=== PATIENT | female | born 1940 | race Caucasian/White ===

== ENCOUNTER → 2016-10-02 | Outpatient (CLI) | payer MEDICARE, BC ==
[~2016-10-02] MED LIST: DENOSUMAB 60 MG/ML 1 ML SYRINGE SQ NR
[2016-10-02 14:26] VITALS: BP 137/79; PULSE 79; RESP 17; TEMP 98.2
== END ==
LOC: PROCWHC3 13:45
PROVIDERS: ATTEND Family Medicine
DX: M81.0 Age-related osteoporosis without current pathological fracture (principal)
CPT/HCPCS: 96372; J0897

== ENCOUNTER → 2017-09-19 | Outpatient (CLI) | payer MEDICARE, BC ==
[~2017-09-19] MED LIST changes: -DENOSUMAB 60 MG/ML 1 ML SYRINGE SQ NR; +DENOSUMAB 60 MG/ML 1 ML SYRINGE SQ ONE
[2017-09-19 11:07] VITALS: BP 126/74; PULSE 80; RESP 15; TEMP 98.4
== END | disposition home or self-care (01) ==
LOC: PROCWHC3 10:57
PROVIDERS: ATTEND Family Medicine
DX: M81.0 Age-related osteoporosis without current pathological fracture (principal)
CPT/HCPCS: 96372; J0897

== ENCOUNTER → 2017-10-16 | Outpatient (CLI) | payer MEDICARE, BC ==
--- NOTE | 2017-10-22 10:03 | MM ---
Reason for exam: screening (asymptomatic). Last mammogram was performed 8 years and 2 months ago. History: Patient is postmenopausal. Physical Findings: A clinical breast exam by your physician is recommended on an annual basis and results should be correlated with mammographic findings. MG 3D Screening Mammo W/Cad Bilateral CC and MLO view(s) were taken. Prior study comparison: January 16, 2016, mammogram, performed at [facility]. December 22, 2014, mammogram, performed at [facility]. There are scattered fibroglandular densities. Finding: There are developing coarse heterogeneous, grouped/clustered calcifications in the upper outer quadrant, middle position of the left breast 6cm from the nipple. New finding since January 16, 2016. ASSESSMENT: Incomplete: need additional imaging evaluation, BI-RAD 0 RECOMMENDATION: Special view mammogram of the left breast. [facility] will attempt to contact patient to return for supplemental views.
== END | disposition home or self-care (01) ==
LOC: RADMAMWWP 10:05
PROVIDERS: ATTEND Family Medicine
DX: Z12.31 Encounter for screening mammogram for malignant neoplasm of breast (principal)
CPT/HCPCS: 77063; 77067

== ENCOUNTER → 2017-10-20 | Outpatient (CLI) | payer MEDICARE, BC ==
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
== END ==
LOC: RADBDWWP 09:07
PROVIDERS: ATTEND Family Medicine
DX: M85.851 Other specified disorders of bone density and structure, right thigh (principal); M85.852 Other specified disorders of bone density and structure, left thigh; M85.88 Other specified disorders of bone density and structure, other site; Z78.0 Asymptomatic menopausal state
CPT/HCPCS: 77080

== ENCOUNTER → 2017-10-31 | Outpatient (CLI) | payer MEDICARE, BC ==
--- NOTE | 2017-11-01 10:38 | MM ---
Reason for exam: additional evaluation requested from abnormal screening. Last mammogram was performed less than 1 month ago. History: Patient is postmenopausal. Physical Findings: Nurse did not find any significant physical abnormalities on exam. MG 3D Work Up W/Cad LT CC with magnification, LM with magnification, and ML view(s) were taken of the left breast. Prior study comparison: October 16, 2017, bilateral MG 3d screening mammo w/cad. January 16, 2016, mammogram, performed at [facility]. December 22, 2014, mammogram, performed at [facility]. The breast tissue is heterogeneously dense. This may lower the sensitivity of mammography. Finding: There is a 5 mm group of calcifications in the upper outer quadrant, middle depth of the left breast . All except one were definitively seen in 2015 and 2014 without mag. views. Overall unchanged. These results were verbally communicated with the patient and result sheet given to the patient on 10/31/17. ASSESSMENT: Benign, BI-RAD 2 RECOMMENDATION: Return to routine screening mammogram schedule for both breasts.
== END | disposition home or self-care (01) ==
LOC: RADMAMWWP 07:31
PROVIDERS: ATTEND Family Medicine
DX: R92.8 Other abnormal and inconclusive findings on diagnostic imaging of breast (principal)
CPT/HCPCS: 77065; G0279; 77061